=== PATIENT | male | born 1960 | race Caucasian/White ===

== ENCOUNTER 2021-06-26 19:38 | Inpatient (IN) ==
[2021-06-26 21:32] LABS: BASOPHILS # (AUTO) 0.2 X10^3/uL (0.0-0.1); BASOPHILS % (AUTO) 1.5 % (0.2-1.0); EOSINOPHILS # (AUTO) 0.1 x10^3/uL (0.0-0.2); HEMATOCRIT 39.2 % (42.0-54.0); HEMOGLOBIN 12.9 g/dL (13.5-18.0); LYMPHOCYTES # (AUTO) 2.4 X10^3/uL (1.3-2.9); LYMPHOCYTES % (AUTO) 22.4 % (21.0-51.0); MEAN CORPUSCULAR HEMOGLOBIN 28.6 pg (27.0-34.0); MEAN CORPUSCULAR HGB CONC 32.8 g/dL (33.0-35.0); MEAN CORPUSCULAR VOLUME 87.1 fL (80.0-100.0); MEAN PLATELET VOLUME 7.1 fL (7.4-11.0); MONOCYTES # (AUTO) 0.7 x10^3/uL (0.3-0.8); MONOCYTES % (AUTO) 6.3 % (0.0-13.0); NEUTROPHILS # (AUTO) 7.3 x10^3/uL (2.2-4.8); NEUTROPHILS % (AUTO) 68.8 % (42.0-75.0); RED CELL DISTRIBUTION WIDTH 14.4 % (11.6-16.5); WHITE BLOOD COUNT 10.7 X10^3/uL (3.6-10.0)
[2021-06-26 21:45] LABS: ALANINE AMINOTRANSFERASE 19 Units/L (12-78); ALBUMIN 3.6 g/dL (3.4-5.0); ALKALINE PHOSPHATASE 66 Units/L (46-116); ASPARTATE AMINO TRANSFERASE 14 Units/L (15-37); BLOOD UREA NITROGEN 23 mg/dL (7-18); CALCIUM 8.9 mg/dL (8.5-10.1); CARBON DIOXIDE 27.1 mmol/L (21-32); CHLORIDE 96 mmol/L (98-107); CREATININE 2.08 mg/dL (0.70-1.30); SODIUM 133 mmol/L (136-145); TOTAL PROTEIN 8.4 g/dL (6.4-8.2); eGFR NON BLACK RACES 34 (>60)
[2021-06-26 21:52] LABS: COR NA(FOR HYPERGLY) 146 mmol/L (136-145)
[2021-06-26] MEDS: LR 1,000 ML IV 1,000 ML IV SCH (22:15)
[2021-06-26] MEDS ORDERED: NovoLIN R (or HumuLIN R) SUBCUT PRN (23:11)
[2021-06-26] MEDS ORDERED: NovoLIN R (or HumuLIN R) ONE (23:24)
[2021-06-26] MEDS ORDERED: ATARAX TAB 25 MG PO PRN (23:56)
[2021-06-26] MEDS ORDERED: NovoLIN R (or HumuLIN R) SC PRN (23:56)
[2021-06-26] MEDS ORDERED: FLEXERIL TAB 10 MG PO PRN (23:56)
[2021-06-27] MEDS ORDERED: COMPAZINE PO PRN (00:01)
[2021-06-27 01:16] VITALS: BMI 29.2
[2021-06-27] MEDS: LR 1,000 ML IV 1,000 ML IV SCH ×2 (04:26→13:15)
--- NOTE | 2021-06-27 06:34 | RAD ---
HISTORYPRE-OPSTUDYCHEST, 1 VIEWCOMPARISONNoneTECHNIQUEAP view of the chestFINDINGSStatus post median sternotomy and valve replacement. Cardiac and mediastinal contours are within normal limits. No consolidation or segmental lung collapse. No definite pleural effusion or pneumothorax. Soft tissue attenuation limits evaluation.IMPRESSIONNo acute pulmonary process.Electronically signed by: Sukumar Giordano (Jun 27, 2021 06:33:29)
[2021-06-27 07:00] LABS: BLOOD UREA NITROGEN 22 mg/dL (7-18); CALCIUM 8.8 mg/dL (8.5-10.1); CHLORIDE 102 mmol/L (98-107); COR NA(FOR HYPERGLY) 142 mmol/L (136-145); CREATININE 1.24 mg/dL (0.70-1.30); SODIUM 138 mmol/L (136-145); eGFR NON BLACK RACES > 60 (>60)
[2021-06-27 07:08] LABS: HEMOGLOBIN A1C 12.3 %
[2021-06-27] MEDS ORDERED: MOBIC TAB 15 MG PO SCH (09:00)
[2021-06-27] MEDS ORDERED: BRILINTA PO SCH (09:00)
[2021-06-27] MEDS ORDERED: COREG TAB 25 MG PO SCH (09:00)
[2021-06-27] MEDS ORDERED: ZETIA TAB 10 MG PO SCH (09:00)
[2021-06-27] MEDS ORDERED: ENTRESTO 24/26 MG TAB PO SCH (09:00)
[2021-06-27] MEDS ORDERED: ASPIRIN EC 81 MG PO SCH (09:00)
[2021-06-27] MEDS ORDERED: CRESTOR TAB 10 MG PO SCH (09:00)
[2021-06-27] MEDS ORDERED: CLARITIN PO SCH (09:00)
[2021-06-27] MEDS ORDERED: K-DUR TAB 20 MEQ PO SCH (09:00)
--- NOTE | 2021-06-27 09:20 | CT ---
HISTORYRIGHT FOOT ISCHEMIA / WOUNDS, PADSTUDYCTA AORTA WITH RUNOFFCOMPARISONNone availableTECHNIQUEAngiogram protocol through the abdomen, pelvis and bilateral legs was performed after the administration of contrast. 3D MIPS images were performed. CT scan was performed following ALARA (As low as Reasonably Achievable).Coronal and Sagittal reformatted images were performed.FINDINGSThe lung bases demonstrate atelectasis in the lingula. The liver, spleen and pancreas demonstrate no focal abnormalities. There is milk of calcium in the gallbladder. No intra or extrahepatic biliary dilatation. The stomach is not distendedNo adrenal masses.There are bilateral normal enhancing kidneys without hydronephrosis or focal masses. No retroperitoneal masses. No abnormal dilated small bowel loops. There is no evidence of colitis, mild constipation. There is a normal-sized appendixPelvis: There is no free fluid, the prostate is not enlarged, there is air left-sided hip prosthesis producing artifact, the urinary bladder is unremarkable, there is no pelvic adenopathy. No evidence of diverticulitis or colitis. Tiny umbilical hernia.Angiogram there is atherosclerotic changes of the abdominal aorta, there is calcified plaque at the origin of the celiac trunk without evidence of focal stenosis. There is also some calcifications along the mid and distal aspect of the superior mesenteric artery without evidence of high-grade stenoses. There are bilateral single renal arteries no focal stenosis in the right. In the left, there is calcification at the origin with less than 50 percent stenosis. There is plaque extending to the bifurcation with 50 percent narrowing of bilateral common iliac arteries and 50-60 percent in the distal left common iliac artery.The left external iliac artery is unremarkable with mild calcification.In the right, there is circumferential plaque with 50 percent narrowing of the left external iliac artery. There is lack of enhancement of the right common femoral stent. There is occlusion of the right superficial femoral artery with heavy calcification throughout the wall. There is reconstitution of the right popliteal artery above the knee t, here is a small vessel below the knee. There is enhancement of the proximal right anterior tibialis artery. There is enhancement of the tibioperoneal trunk with calcification. There is enhancement of 3 vessels at the level of the calf with enhancement of the dorsal pedis artery in the right foot. There is lack of enhancement of the left posterior tibialis artery at the level of the ankle and in the medial aspect of the foot with some small plantar branch enhancement more distally.In the left, there is normal enhancement of the left common femoral artery and the superficial femoral artery with areas of 50 and 60 percent calcification. There is normal enhancement of the popliteal artery and the anterior tibialis trunk and the tibioperoneal trunk there are 3 vessels at the level of the calf, the dorsal pedis artery and the posterior tibialis artery are patent without focal abnormality.Bone windows no acute fractures no aggressive bone lesions.IMPRESSIONOcclusion of the stent of the right common femoral artery with occlusion of the right superficial femoral artery and reconstitution of the popliteal artery above the knee with 3 vessels at the level of the calf; however there is lack of enhancement of the right posterior tibialis artery at the level of the right ankle and in the medial foot suggestive of occlusion with few small enhancing plantar branches more distally. The right dorsal pedis artery is patentBilateral common iliac artery disease with 60 percent narrowing also diffuse disease with 50-60 percent narrowing of the right external iliac artery.Electronically signed by: Tyra Capellan (Jun 27, 2021 09:19:12)
[2021-06-27] MEDS ORDERED: PEPCID 20 MG VIAL IVP ONE ×2 (10:33→10:52)
[2021-06-27] MEDS ORDERED: REGLAN INJ 10 MG VIAL IVP ONE ×2 (10:34→10:53)
[2021-06-27] MEDS ORDERED: DILAUDID INJ IVP PRN (12:03)
[2021-06-27] MEDS ORDERED: HEPARIN SODIUM INJ 5000 UNITS ONE ×3 (13:15→15:57)
[2021-06-27] MEDS ORDERED: HEPARIN SODIUM IN D5W 75,000 UNITS/1,500 ML BAG ONE (13:15)
[2021-06-27] MEDS ORDERED: MARCAINE 0.5% ONE (13:15)
--- NOTE | 2021-06-27 13:15 | DR.H&P ---
H&P History & Physical for Day of: H&P Date: 06/26/21 Chief Complaint Chief Complaint: Severe pain both LE , right greater than left , ulcer to right heel Allergies Allergies Allergy/AdvReac Type Severity Reaction Status Date / Time ranitidine [From Zantac] Allergy Verified 06/26/21 16:25 History of Present Illness History of Present Illness: 61 yo male with referral from Dr. Riley for rest pain and critical ischemia of the right lower extremity with claudication left lower extremity. Also has diabetic ulcer right heel. In [place] approximately 6 weeks ago where he had stents placed in coronary arteries and also underwent trans aortic valve replacement ( TAVR) with complication I cannot characterize yet, but did require open incision in the rig ht groin and removal of a balloon via the right femoral artery . I am awaiting details of this from the discharge summary in [place] . CT angiogram of the aorta with runoff shows a completely occluded stent in the right common femoral artery and complete occlusion of the right superficial femoral artery ( [place] vessel) with reconstitution of the popliteal artery and three vessel runoff . Past Medical History Past Medical History: Angina (history of angina but not currently ), CHF (on Entresto), Coronary Artery Disease (history of CABG over ten years ago, multiple coronary stents most recently 6 weeks ago ), Diabetes (patient portal compliant and hemoglobin A1c greater than 13 ), Dyslipidemia and NV (history of NV) Additional Medical History: severe tobacco abuse history greater than 50 pack years. Stops 2 months ago Past Surgical History Surgical History: Angioplasty/Stents, CABG/Valve Surgery (has had traditional bypass surgery and most recently trans aortic valve replacement ( TAVR)) and Tonsillectomy Family History Family Medical History: Diabetes Mellitus, Coronary Artery Disease and Hypertension Social History Does patient currently use any type of tobacco product: No Have you used tobacco products in the last 12 months: Yes Type of Tobacco Use: Cigarettes How many years tobacco product used: 50 Packs per day or dips/chews per day: 1 Does any household member use tobacco: No Alcohol Use: None Drug Use: None Prescription drug monitoring program results: PDMP was not reviewed Medications Home Medications: ranitidine [From Zantac] Allergy (Verified 06/26/21 16:25) CONTINUE taking the following medications aspirin [Domingo Aspirin] 325 mg PO DAILY 06/26/21 [History] carvedilol 25 mg PO BID 06/26/21 [History] cyclobenzaprine 10 - 20 mg PO Q8H PRN 06/26/21 [History] dapagliflozin [Farxiga] 10 mg PO DAILY 06/26/21 [History] ezetimibe [Zetia] 10 mg PO QAM 06/26/21 [History] furosemide 40 mg PO BID 06/26/21 [History] gabapentin 300 mg PO HS 06/26/21 [History] hydrocodone-acetaminophen 1 tab PO Q6H PRN 06/26/21 [History] hydroxyzine HCl 25 mg PO TID 06/26/21 [History] loratadine 10 mg PO DAILY 06/26/21 [History] meloxicam 15 mg PO DAILY 06/26/21 [History] potassium chloride 10 meq PO DAILY 06/26/21 [History] prochlorperazine maleate 10 mg PO Q8H PRN 06/26/21 [History] rosuvastatin 40 mg PO DAILY 06/26/21 [History] sacubitril-valsartan [Entresto] 1 tab PO BID 06/26/21 [History] sitagliptin [Januvia] 100 mg PO DAILY 06/26/21 [History] ticagrelor [Brilinta] 90 mg PO BID 06/26/21 [History] Labs Result Diagrams: 06/26/21 21:24 06/27/21 06:27 Labs: Laboratory WBC 10.7 X10^3/uL (3.6-10.0) H 06/26/21 21:24 RBC 4.50 X10^6/uL (4.7-6.0) L 06/26/21 21:24 Hgb 12.9 g/dL (13.5-18.0) L 06/26/21 21:24 Hct 39.2 % (42.0-54.0) L 06/26/21 21:24 MCV 87.1 fL (80.0-100.0) 06/26/21 21:24 MCH 28.6 pg (27.0-34.0) 06/26/21 21:24 MCHC 32.8 g/dL (33.0-35.0) L 06/26/21 21:24 RDW 14.4 % (11.6-16.5) 06/26/21 21:24 Plt Count 305 X10^3/uL (150.0-450.0) 06/26/21 21:24 MPV 7.1 fL (7.4-11.0) L 06/26/21 21:24 Neut % (Auto) 68.8 % (42.0-75.0) 06/26/21 21:24 Lymph % (Auto) 22.4 % (21.0-51.0) 06/26/21 21:24 [place] % (Auto) 6.3 % (0.0-13.0) 06/26/21 21:24 Eos % (Auto) 1.0 % (0.9-2.9) 06/26/21 21:24 Baso % (Auto) 1.5 % (0.2-1.0) H 06/26/21 21:24 Neut # (Auto) 7.3 x10^3/uL (2.2-4.8) H 06/26/21 21:24 Lymph # (Auto) 2.4 X10^3/uL (1.3-2.9) 06/26/21 21:24 [place] # (Auto) 0.7 x10^3/uL (0.3-0.8) 06/26/21 21:24 Eos # (Auto) 0.1 x10^3/uL (0.0-0.2) 06/26/21 21:24 Baso # (Auto) 0.2 X10^3/uL (0.0-0.1) H 06/26/21 21:24 Absolute Nucleated RBC 0.0 /100WBC 06/26/21 21:24 PT 13.4 SECONDS (11.8-14.3) 06/26/21 21:24 INR Target Range - 06/26/21 21:24 INR 1.07 (0.8-1.3) 06/26/21 21:24 APTT 31.5 SECONDS (22.9-36.5) 06/26/21 21:24 PTT Comment - 06/26/21 21:24 Sodium 138 mmol/L (136-145) 06/27/21 06:27 Corrected Sodium 142 mmol/L (136-145) 06/27/21 06:27 Potassium 3.7 mmol/L (3.5-5.1) 06/27/21 06:27 Chloride 102 mmol/L (98-107) 06/27/21 06:27 Carbon Dioxide 25.0 mmol/L (21-32) 06/27/21 06:27 BUN 22 mg/dL (7-18) H 06/27/21 06:27 Creatinine 1.24 mg/dL (0.70-1.30) 06/27/21 06:27 Est GFR (MDRD) Af Amer > 60 (>60) 06/27/21 06:27 Est GFR (MDRD) Non-Af > 60 (>60) 06/27/21 06:27 Glucose 251 mg/dL (65-99) H 06/27/21 06:27 POC Glucose (mg/dL) 303 mg/dL (65-99) H 06/27/21 12:02 Hemoglobin A1c 12.3 % 06/27/21 06:27 Calcium 8.8 mg/dL (8.5-10.1) 06/27/21 06:27 Corrected Calcium TNP 06/26/21 21:24 Total Bilirubin 0.40 mg/dL (0.2-1.0) 06/26/21 21:24 AST 14 Units/L (15-37) L 06/26/21 21:24 ALT 19 Units/L (12-78) 06/26/21 21:24 Alkaline Phosphatase 66 Units/L (46-116) 06/26/21 21:24 Total Protein 8.4 g/dL (6.4-8.2) H 06/26/21 21:24 Albumin 3.6 g/dL (3.4-5.0) 06/26/21 21:24 Globulin 4.8 g/dL (2.5-4.5) H 06/26/21 21:24 Albumin/Globulin Ratio 0.8 Ratio (1.1-2.1) L 06/26/21 21:24 SARS CoV-2 RNA Rapid RAAD Negative (NEGATIVE) 06/26/21 20:16 Review of Systems Constitutional: Other (main complaint is severe rest pain of the right lower extremity and bilateral shoulders and claudication ) Eyes: No Symptoms Reported ENT: No Symptoms Reported Respiratory: No Symptoms Reported Cardiovascular: No Symptoms Reported (nice chest pain at this time ) Gastrointestinal: No Symptoms Reported Genitourinary: No Symptoms Reported Skin: No Symptoms Reported Physical Exam Vital Signs: Temperature 98.3 F Pulse Rate [Radial] 90 Respiratory Rate 20 Blood Pressure [Left Arm] 112/74 O2 Sat by Pulse Oximetry 95 Oriented: Normal, Time, Person and Place Eyes: Normal Ear: Normal Nose: Normal Throat: Normal Respiratory: Clear Throughout Cardiovascular: Normal and Other (no obvious murmur with Aortic valve in place ) : Normal Auscultation: Bowel Sounds: Normal Palpation: Normal Tenderness: Normal Skin: Normal and Wound (4 cm superficial diabetic ulcer right heel ) Musculoskeletal: Normal Psychiatric: Normal Mood Description: Flat Affect: Depressed Speech Pattern: Clear Assessment/Plan (1) S/P TAVR (transcatheter aortic valve replacement): Status: Acute (2) Coronary artery disease: Status: Acute Plan: treat with usual home medications (3) Hypertension: Status: Acute Plan: Treat with usual home medications (4) Diabetes 1.5, managed as type 1: Status: Acute Plan: Poorly contolled , HgB A1C > 13 . May need hospitalist consult (5) Hypercholesteremia: Status: Acute Plan: usual home medications (6) Congestive heart failure: Status: Acute Plan: usual home medications. Obtain discharge summary from recent hospitalization in [facility]. (7) Tobacco abuse: Status: Acute Plan: Nicotine patch (8) Diabetic foot ulcer: Status: Acute Plan: relieve pressure (9) Critical limb ischemia of left lower extremity: Status: Acute Plan: To OR for aortogram, arteriogram right lower extremity, Possible athrectomy and balloon angioplasty of the occluded right common femoral and right superficial femoral arteries . 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
[2021-06-27] MEDS ORDERED: KETAMINE HCL ONE ×2 (13:54→14:25)
[2021-06-27] MEDS ORDERED: FENTANYL VIAL INJ 100 mcg ONE (13:54)
[2021-06-27] MEDS ORDERED: LR 1,000 ML IV 1,000 ML IV ONE (14:09)
[2021-06-27] MEDS ORDERED: PEPCID 20 MG IV PREMIX* 50 ML IV ONE (14:12)
[2021-06-27] MEDS ORDERED: ANCEF VIAL 1 GRAM ONE (14:13)
[2021-06-27] MEDS ORDERED: NS 100 ML IV 100 ML ONE (14:13)
[2021-06-27] MEDS ORDERED: VERSED ONE (14:25)
[2021-06-27] MEDS ORDERED: DIPRIVAN VIAL ONE (14:25)
[2021-06-27] MEDS ORDERED: NS 1,000 ML IV 1,000 ML ONE (14:47)
[2021-06-27] MEDS ORDERED: ACTIVASE CATHFLO ONE (15:34)
[2021-06-27] MEDS ORDERED: NS 500 ML IV 500 ML IV ONE (15:35)
[2021-06-27] MEDS ORDERED: HEPARIN SODIUM IN D5W 25,000 UNITS/500 ML BAG ONE (16:09)
[2021-06-27] MEDS ORDERED: DIPRIVAN VIAL 20 ML ONE (16:19)
[2021-06-27] MEDS ORDERED: PERCOCET TAB 5/325 MG PO PRN (17:31)
--- NOTE | 2021-06-27 17:40 | OR.IMMED ---
IMMEDIATE POST-OP NOTE Immediate Post-Op Note Pre-Op Diagnosis: Critical limb ischemia right foot, rest pain left foot Post-Op Diagnosis: occluded right common femoral artery stent, complete total occlusion entire right superficial femoral artery, three vessel runoff right leg with normal popliteal artery ,severe stenosis of left common iliac artery at the junction with the external iliac artery Procedure: Aortogram , arteriogram right lower extremity ,angiojet thrombectomy of occluded right common femoral stent and right superficial femoral artery, jet stream athrectomy of right superficial femoral artery and right common femoral stent ,drug-coated balloon angioplasty of entire right superficial femoral artery, common femoral artery and common femoral stent ,stretching left common iliac /external iliac artery. Description of Procedure: see operative summary Surgeon/Recoverer: Kristy Findings: as above Specimens Removed: none Estimated Blood Loss: < 50 cc Complications: none Discharge Progress Notes: Will return to the floor. Hydrate tonight and leave Adams catheter in place secondary to Mechanical thrombectomy. Began his usual home medications. Better blood sugar control, begin Eliquis 5 mg BID . Hopefully discharge home tomorrow. Condition: Stable Final Diagnosis: as above
[2021-06-27 17:55] VITALS: BP 146/76
[2021-06-27] MEDS ORDERED: SNACK - Diabetic Appropriate PO SCH (20:00)
[2021-06-27] MEDS ORDERED: NovoLIN R (or HumuLIN R) SUBCUT ONE (20:40)
[2021-06-27] MEDS ORDERED: DILAUDID INJ IVP ONE (20:40)
[2021-06-27] MEDS ORDERED: ENTRESTO 24/26 MG TAB PO ONE (21:00)
[2021-06-27] MEDS ORDERED: BRILINTA PO ONE (21:00)
[2021-06-27] MEDS ORDERED: COREG TAB 25 MG PO ONE (21:00)
[2021-06-27] MEDS ORDERED: ELIQUIS PO ONE (21:00)
[2021-06-27] MEDS ORDERED: ELIQUIS PO SCH (21:00)
[2021-06-27] MEDS ORDERED: NEURONTIN CAP 300 MG PO ONE (21:00)
[2021-06-27] MEDS ORDERED: NEURONTIN CAP 300 MG PO SCH (21:00)
[2021-06-28] MEDS ORDERED: NICOTINE PATCH TD SCH (09:00)
--- NOTE | 2021-06-28 17:28 | W.DIS.FURT ---
Summary of Discharge Discharge Summary of Date Date of Exam: 06/28/21 Admission Diagnosis Hospital Course: 61 year old male has a long history of coronary artery disease status post coronary artery bypass grafting over 10 years ago followed by multiple coronary stents, poorly controlled diabetes, severe tobacco abuse, congestive heart failure recently underwent TAVR and multiple coronary stents in May of 2021 in [place] for NSTEMI and aortric valve insufficiency. EF noted to be 30 %. At the time of the placement of the TAVR he had injury to the right common femoral artery removing a ruptured balloon requiring Viabahn stent graft placement in the right common femoral artery. He presented to his air director with severe rest pain of the right lower extremity and moderate pain of the left lower extremity and 4 cm diabetic ulcer of the right heel. CTA showed thrombosis of the right common femoral artery graft with complete total occlusion of the right superficial femoral artery .He was taken to the operative Suite where he underwent aorta gram and arteriogram of the right lower extremity showing the Graft in the right groin to be completely occluded with a long segment complete total occlusion of the right superficial femoral artery and re-establishment of flow of the popliteal artery with three vessel runoff on the right . He was also noted to have severe stenosis of the left iliac artery at the junction of the common iliac artery to the external iliac artery . He underwent Angiojet thrombectomy of the right common femoral artery stent , athrectomy of the complete total occlusion of the right superficial femoral artery , drug-coated balloon angioplasty of all of the above and stenting of the left iliac artery . Post procedure has done well with decreasing pain bilaterally of the lower extremities with Doppler signals noted to be biphasic at the ankles of both vessels . He will be discharged home today on his medications which include Brilinta and aspirin .I will add Eliquis 5 mg BID .He is encouraged not to smoke . Santyl will be applied to his right heel daily. he is encouraged to follow his diabetic diet. I will see him in follow up in one week. At that time I will contact his PCP or get him another PCP to better control his blood sugars. Vital Signs: Vital Signs (72 hours) 06/27/21 00:00 06/27/21 04:00 06/27/21 08:00 Temperature 98.1 F 98.2 F 98.3 F Pulse Rate [Radial] 102 H 92 H 90 Respiratory Rate 20 21 20 Blood Pressure [Left Arm] 133/72 130/56 112/74 O2 Sat by Pulse Oximetry 99 93 L 95 06/27/21 12:00 06/27/21 13:02 06/27/21 13:32 Temperature 98.0 F Pulse Rate [Radial] 106 H Respiratory Rate 20 18 18 Blood Pressure [Left Arm] 117/73 O2 Sat by Pulse Oximetry 97 06/27/21 17:20 06/27/21 17:35 06/27/21 17:55 Temperature 98.5 F 98.0 F Pulse Rate [Radial] 111 H 111 H 116 H Respiratory Rate 20 20 20 Blood Pressure [Left Arm] 134/98 142/78 146/76 O2 Sat by Pulse Oximetry 98 97 98 Labs: Laboratory Last Values WBC 10.7 X10^3/uL (3.6-10.0) H 06/26/21 21:24 RBC 4.50 X10^6/uL (4.7-6.0) L 06/26/21 21:24 Hgb 12.9 g/dL (13.5-18.0) L 06/26/21 21:24 Hct 39.2 % (42.0-54.0) L 06/26/21 21:24 MCV 87.1 fL (80.0-100.0) 06/26/21 21:24 MCH 28.6 pg (27.0-34.0) 06/26/21 21:24 MCHC 32.8 g/dL (33.0-35.0) L 06/26/21 21:24 RDW 14.4 % (11.6-16.5) 06/26/21 21:24 Plt Count 305 X10^3/uL (150.0-450.0) 06/26/21 21:24 MPV 7.1 fL (7.4-11.0) L 06/26/21 21:24 Neut % (Auto) 68.8 % (42.0-75.0) 06/26/21 21:24 Lymph % (Auto) 22.4 % (21.0-51.0) 06/26/21 21:24 [place] % (Auto) 6.3 % (0.0-13.0) 06/26/21 21:24 Eos % (Auto) 1.0 % (0.9-2.9) 06/26/21 21:24 Baso % (Auto) 1.5 % (0.2-1.0) H 06/26/21 21:24 Neut # (Auto) 7.3 x10^3/uL (2.2-4.8) H 06/26/21 21:24 Lymph # (Auto) 2.4 X10^3/uL (1.3-2.9) 06/26/21 21:24 [place] # (Auto) 0.7 x10^3/uL (0.3-0.8) 06/26/21 21:24 Eos # (Auto) 0.1 x10^3/uL (0.0-0.2) 06/26/21 21:24 Baso # (Auto) 0.2 X10^3/uL (0.0-0.1) H 06/26/21 21:24 Absolute Nucleated RBC 0.0 /100WBC 06/26/21 21:24 PT 13.4 SECONDS (11.8-14.3) 06/26/21 21:24 INR Target Range - 06/26/21 21:24 INR 1.07 (0.8-1.3) 06/26/21 21:24 APTT 31.5 SECONDS (22.9-36.5) 06/26/21 21:24 PTT Comment - 06/26/21 21:24 Sodium 138 mmol/L (136-145) 06/27/21 06:27 Corrected Sodium 142 mmol/L (136-145) 06/27/21 06:27 Potassium 3.7 mmol/L (3.5-5.1) 06/27/21 06:27 Chloride 102 mmol/L (98-107) 06/27/21 06:27 Carbon Dioxide 25.0 mmol/L (21-32) 06/27/21 06:27 BUN 22 mg/dL (7-18) H 06/27/21 06:27 Creatinine 1.24 mg/dL (0.70-1.30) 06/27/21 06:27 Est GFR (MDRD) Af Amer > 60 (>60) 06/27/21 06:27 Est GFR (MDRD) Non-Af > 60 (>60) 06/27/21 06:27 Glucose 251 mg/dL (65-99) H 06/27/21 06:27 POC Glucose (mg/dL) 303 mg/dL (65-99) H 06/27/21 12:02 Hemoglobin A1c 12.3 % 06/27/21 06:27 Calcium 8.8 mg/dL (8.5-10.1) 06/27/21 06:27 Corrected Calcium TNP 06/26/21 21:24 Total Bilirubin 0.40 mg/dL (0.2-1.0) 06/26/21 21:24 AST 14 Units/L (15-37) L 06/26/21 21:24 ALT 19 Units/L (12-78) 06/26/21 21:24 Alkaline Phosphatase 66 Units/L (46-116) 06/26/21 21:24 Total Protein 8.4 g/dL (6.4-8.2) H 06/26/21 21:24 Albumin 3.6 g/dL (3.4-5.0) 06/26/21 21:24 Globulin 4.8 g/dL (2.5-4.5) H 06/26/21 21:24 Albumin/Globulin Ratio 0.8 Ratio (1.1-2.1) L 06/26/21 21:24 SARS CoV-2 RNA Rapid RAAD Negative (NEGATIVE) 06/26/21 20:16 Reason For Visit: RIGHT ISCHEMIC FOOT Discharge Diagnosis All Active Problems (Updated 06/27/21 @ 12:53 by Richmond Wagner) 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 Pt is to keep follow up appointment as instructed and take medications as ordered. Discharge Medications Discharge Medications: ranitidine [From Zantac] Allergy (Verified 06/26/21 16:25) CONTINUE taking the following medications Brilinta 90 mg PO BID 06/26/21 [History] Entresto 1 tab PO BID 06/26/21 [History] Farxiga 10 mg PO DAILY 06/26/21 [History] Januvia 100 mg PO DAILY 06/26/21 [History] aspirin [Domingo Aspirin] 325 mg PO DAILY 06/26/21 [History] carvedilol 25 mg PO BID 06/26/21 [History] cyclobenzaprine 10 - 20 mg PO Q8H PRN 06/26/21 [History] ezetimibe [Zetia] 10 mg PO QAM 06/26/21 [History] furosemide 40 mg PO BID 06/26/21 [History] gabapentin 300 mg PO HS 06/26/21 [History] hydrocodone-acetaminophen 1 tab PO Q6H PRN 06/26/21 [History] hydroxyzine HCl 25 mg PO TID 06/26/21 [History] loratadine 10 mg PO DAILY 06/26/21 [History] meloxicam 15 mg PO DAILY 06/26/21 [History] potassium chloride 10 meq PO DAILY 06/26/21 [History] prochlorperazine maleate 10 mg PO Q8H PRN 06/26/21 [History] rosuvastatin 40 mg PO DAILY 06/26/21 [History] New Prescriptions apixaban [Eliquis] 5 mg PO BID #60 tab 06/28/21 [Rx] collagenase clostridium histo. [Santyl] 1 applic TOPICAL QHS #30 g 06/28/21 [Rx] Discharge Disposition Assessment: Critical limb ischemia of the right lower extremity secondary to thrombosed right common femoral Viabahn graft and complete total occlusion of the right superficial femoral artery status post mechanical thrombectomy, athrectomy and drug-coated balloon angioplasty of all the above and reestablishment of three vessel runoff on the right. Very poor flow in the left common femoral artery secondary to severe stenosis left iliac vessel status post stenting and re- establishment of excellent doppler signals at the ankle of both vessels . Relief of pain both lower extremities . Discharge Plan Discharge Plan Hospital Course: 61 year old male has a long history of coronary artery disease status post coronary artery bypass grafting over 10 years ago followed by multiple coronary stents, poorly controlled diabetes, severe tobacco abuse, congestive heart failure recently underwent TAVR and multiple coronary stents in May of 2021 in [place] for NSTEMI and aortric valve insufficiency. EF noted to be 30 %. At the time of the placement of the TAVR he had injury to the right common femoral artery removing a ruptured balloon requiring Viabahn stent graft placement in the right common femoral artery. He presented to his air director with severe rest pain of the right lower extremity and moderate pain of the left lower extremity and 4 cm diabetic ulcer of the right heel. CTA showed thrombosis of the right common femoral artery graft with complete total occlusion of the right superficial femoral artery .He was taken to the operative Suite where he underwent aorta gram and arteriogram of the right lower extremity showing the Graft in the right groin to be completely occluded with a long segment complete total occlusion of the right superficial femoral artery and re-establishment of flow of the popliteal artery with three vessel runoff on the right . He was also noted to have severe stenosis of the left iliac artery at the junction of the common iliac artery to the external iliac artery . He underwent Angiojet thrombectomy of the right common femoral artery stent , athrectomy of the complete total occlusion of the right superficial femoral artery , drug-coated balloon angioplasty of all of the above and stenting of the left iliac artery . Post procedure has done well with decreasing pain bilaterally of the lower extremities with Doppler signals noted to be biphasic at the ankles of both vessels . He will be discharged home today on his medications which include Brilinta and aspirin .I will add Eliquis 5 mg BID .He is encouraged not to smoke . Santyl will be applied to his right heel daily. he is encouraged to follow his diabetic diet. I will see him in follow up in one week. At that time I will contact his PCP or get him another PCP to better control his blood sugars. Patient Disposition: 01 HOME, SELF-CARE Condition: Stable Health Concerns: Post Hospitalization: new medications and changes needed to prevent readmission or further decline. Pt educated and given instructions on all concerns. Care Plan Goals: Santyl to right heel wound daily. No smoking. Better diabetes control starting with adhering to his diet . Will have him referred to his PCP or a new PCP to aid in better blood sugar control. A1C =12.3. Much better blood sugar control during this hospitalization with adherence to an 180 calorie ADA diet. Plan of Treatment: Continue with present treatment and follow up plan. Pt is to keep follow up appointment as instructed and take medications as ordered. Assessment: Critical limb ischemia of the right lower extremity secondary to thrombosed right common femoral Viabahn graft and complete total occlusion of the right superficial femoral artery status post mechanical thrombectomy, athrectomy and drug-coated balloon angioplasty of all the above and reestablishment of three vessel runoff on the right. Very poor flow in the left common femoral artery secondary to severe stenosis left iliac vessel status post stenting and re- establishment of excellent doppler signals at the ankle of both vessels . Relief of pain both lower extremities . Prescriptions: New Santyl 250 unit/gram Ointment 1 applic TOPICAL QHS Qty: 30 RF: 0 Eliquis 5 mg Tablet 5 mg PO BID Qty: 60 RF: 0 Continued cyclobenzaprine 10 mg tablet 10 - 20 mg PO Q8H PRNRF: 0 furosemide 40 mg tablet 40 mg PO BID RF: 0 carvedilol 25 mg tablet 25 mg PO BID RF: 0 aspirin [Domingo Aspirin] 325 mg Tablet 325 mg PO DAILY RF: 0 meloxicam 15 mg tablet 15 mg PO DAILY RF: 0 potassium chloride 10 mEq tablet extended release 10 meq PO DAILY RF: 0 prochlorperazine maleate 10 mg tablet 10 mg PO Q8H PRNRF: 0 hydrocodone-acetaminophen 10-325 mg tablet 1 tab PO Q6H PRNRF: 0 gabapentin 300 mg capsule 300 mg PO HS RF: 0 hydroxyzine HCl 25 mg tablet 25 mg PO TID RF: 0 loratadine 10 mg tablet 10 mg PO DAILY RF: 0 ezetimibe [Zetia] 10 mg Tablet 10 mg PO QAM RF: 0 rosuvastatin 40 mg tablet 40 mg PO DAILY RF: 0 Januvia 100 mg tablet 100 mg PO DAILY RF: 0 Brilinta 90 mg tablet 90 mg PO BID RF: 0 Farxiga 10 mg tablet 10 mg PO DAILY RF: 0 Entresto 49-51 mg tablet 1 tab PO BID RF: 0 Follow ups/Referrals Follow ups/Referrals: KATHERINE KANG [Primary Care Provider] - 1 WEEK Instructions Stand Alone Forms: Excuse From Work or School, Precautions for COVID19, [facility], Patient Portal, Social Distancing
--- NOTE | 2021-06-28 20:00 | DR.OPNOTE ---
OP NOTE Pre-Op Diagnosis: Critical limb ischemia right leg, rest pain left leg Post-Op Diagnosis: same Procedure Date Date Of Procedure: 06/27/21 Procedure: PROCEDURE: Aortogram , arteriogram right lower extremity, Angiojet right common femoral artery stent, athrectomy right superficial femoral artery, drug-coated balloon angioplasty right superficial femoral artery and common femoral artery ,stenting right mid superficial femoral artery, stenting left common iliac artery. NARRATIVE : Patient was taken to the operative suite and placed in the Supine position. The left groin and and entire right leg were prepped and draped in sterile fashion. He was administered IV sedation which was supervised by myself for the procedure . Time out for the procedure made. Ultrasound used to identify the left common femoral artery. Waveform was very depressed. Ultrasound used to guide puncture of the left common femoral artery and the pulse of blood was very slow. 0. 012 inch guidewire placed without difficulty. Incision made over the guide wire with a number 11 knife blade and a micro sheath placed. Again the flow through the micro sheath was very weak although pulsatile. Small wire exchanged for a 0.035 inch Advantage glidewire. Micro sheath exchanged for a 5 Fr vascular sheath. Patient was given 5000 units of intravenous heparin. Omni catheter placed into the aorta and aortogram carried out showing normal aorta, normal right iliac arteries and occluded right common femoral stent . Left common iliac artery at junction with the external iliac artery had evidence of severe stenosis. Omni catheter exchanged for a RIM catheter which was used to steer the guidewire down the right iliac artery just above the occluded right femoral stent. Omni catheter exchanged for a Trailblazer catheter and arteriogram of the right leg showed complete total occlusion of the entire right superficial femoral artery. Trailblazer and the 0.035 inch Advantage glidewire used to traverse the superficial femoral artery occlusion into the popliteal artery. Popliteal artery and all 3 trifurcation vessels were normal by arteriogram. The short vascular sheath was exchanged for a 7 Fr destination sheath which was parked above the occluded right common femoral stent . Angiojet device was assembled and mechanical thrombectomy carried out of the right common femoral artery of the occluded stent and the right superficial fe moral artery. This exchanged for the Jet Stream athrectomy device which was used to perform atherectomy of the entire complete total occlusion of the right superficial femoral artery. The Jet Stream device was used over a 0. 014 in wire which had been exchanged for the 0. 035 inch wire. The distal superficial femoral artery was ballooned open with a 5 mm by 200 mm [employer] drug- coated balloon which was inflated for 3 minutes ,then deflated. More proximally the superficial femoral artery was dilated with a 6 mm by 200 mm [employer] drug-coated balloon which was held inflated for 3 minutes. Finally the most proximal superficial femoral artery, the common femoral artery stent and the distal right external iliac artery were ballooned open with a 6 mm by 150 mm [place] drug coated angioplasty balloon. Post-procedure arteriogram showed small dissection in the mid portion of the right superficial femoral artery. This was covered with a 6 mm by 80 mm [place] drug-coated stent and inflated .Repeat arteriogram carried out showing resolution of the arterial dissection . The destination sheath was pulled back into the take off of the right common iliac artery and arteriogram carried out showing a normal right common iliac artery . The destination sheath was further pulled back into the left external iliac artery arterial and arteriogram confirmed severe stenosis of the take-off of the left external iliac artery from the left common iliac artery. This was stented with a 8 mm by 37 mm [employer] stent which was ballooned open .Repeat arteriogram showed excellent result of the stenting of the left iliac artery . Additional 3,000 units of Heparin was given at 1 hour. At the completion of the case 30 mg of IV Protamine was given. The destination sheath was exchanged for an Angio seal device which was used to close the puncture of the left common femoral artery . The patient taken to his room in good condition. Type of Anesthesia: Local (0. 5% Marcaine ) Anesthesia Comment: plus MAC Findings: Thrombosis right common femoral artery stent, complete total occlusion right superficial femoral artery over its entire length , normal right popliteal artery and normal right trifurcation vessels ,severe stenosis left common iliac artery at the junction with the external iliac artery Type of Fluids Used:: Lactated Ringers Total Amount of Fluid Infused:: 650 cc Urine output: 400 cc EBL: <50 cc Drains/Tubes Placed: None Hardware: stent right mid superficial femoral artery, stent left, iliac artery Complications:: none Needle/Sponge Count:: correct Disposition/Condition: Pt. tolerated procedure without difficultyTaken to the floor in stable condition.
== END 2021-06-28 13:35 | disposition home or self-care (01) | DRG 272 ==
LOC: MED/SURG → OBSVTOIN 19:57
PROVIDERS: ADMIT Surgery; ATTEND Surgery